=== PATIENT | male | born 1965 | race Caucasian/White ===

== ENCOUNTER → 2022-04-21 | Outpatient (CLI) | payer OTHER, SELFPAY ==
[2022-04-21 12:41] LABS: Absolute Lymphocyte Count 2.69 X10^3/uL (0.83-4.51); Absolute Neutrophil Count 7.1 X10^3/uL (2.0-7.7); Basophil# 0.05 X10^3/uL; Basophil% 0.5 % (0-1); Eosinophil# 0.14 X10^3/uL; Eosinophils% 1.3 % (0-5); Hematocrit 46.6 % (40-54); Hemoglobin 15.7 g/dL (13.0-16.5); Lymphocyte # 2.69 X10^3/ul (0.83-4.51); Lymphocyte % 25.2 % (19-41); Mean Corp Hgb Conc 33.7 g/dL (32-36); Mean Corpuscular Hgb 30.3 pg (27.0-32.0); Mean Corpuscular Volume 89.8 fL (80-94); Mean Platelet Vol. 9.2 fl (6.2-12.0); Monocyte% 6.6 % (0-10); NRBC Flagged by Analyzer 0 % (0-5); Neutrophil # 7.06 X10^3/uL (2.7-7.7); Neutrophil % 66.1 % (47-70); Platelet Count 267 K/mm3 (150-450); RBC Distribution Width CV 14.7 % (11.6-14.6); Red Blood Count 5.19 M/mm3 (4.6-6.2); White Blood Count 10.7 K/mm3 (4.4-11.0)
[2022-04-21 13:31] LABS: AST(SGOT) 15 U/L (15-37); Alanine Aminotransfer ALT/SGPT 34 U/L (16-61); Albumin, Serum 3.6 g/dL (3.2-5.0); Alkaline Phosphatase 87 U/L (45-117); Anion Gap 8 (5-15); BUN 14 mg/dL (7-18); BUN/Creat Ratio 19.7 RATIO (10-20); Calcium,Total 9.9 mg/dL (8.5-10.1); Chloride 100 mmol/L (98-107); Cholesterol 147 mg/dL (200); Creatinine, Serum 0.71 mg/dL (0.70-1.30); EST Glomerular Filtration Rate 123 mL/min (>60); Est Glom Filt Rate - Afr Amer 149 mL/min (>60); Globulin 3.6 g/dL (2.2-4.2); Glucose 134 mg/dL (74-106); High Density Lipoprotein 41 mg/dL; Potassium 4.6 mmol/L (3.5-5.1); Protein, Total 7.2 g/dL (6.4-8.2); Sodium Level 137 mmol/L (136-145); Triglycerides 109 mg/dL; Very Low Density Lipoprotein 22 mg/dL (5-40)
== END | disposition home or self-care (01) ==
LOC: LABSPEC 10:39
PROVIDERS: PCP Internal Medicine; Visit Provider Nurse Practitioner Family
DX: I10 Essential (primary) hypertension (principal); E11.9 Type 2 diabetes mellitus without complications; E78.5 Hyperlipidemia, unspecified
CPT/HCPCS: 80053; 80061; 83036; 85025

== ENCOUNTER 2025-04-27 13:49 | Outpatient (RCR) | payer SELFPAY ==
[2025-04-27 14:23] VITALS: BP 126/74; PULSE 85; RESP 16; TEMP 36.8; BMI 24.3
--- NOTE | 2025-04-27 16:08 | PCM.WC.HP ---
History of Present Illness Date of Service: 04/27/25 History of Wound: Mr. Ivan Gaspar is a 59 y/o male who presents today with concerns regarding pain and skin changes to the RLE. He reports a couple weeks ago he was power-washing his house and was set off balance, tripped backwards but ultimately landed on his feet; he did scrape the inside of his R calf/horn against scaffolding but this was superficial, he denies any penetrating injury. Initially, it all seemed quite minor but that evening his R ankle swelled up, the calf/horn was red and tender, and he developed significant pain to the calf/horn and top of his foot. He presented to the ER and was treated for cellulitis with a course of Bactrim and Keflex and provided with hydrocodone-acetaminophen for pain. He reports he saw no improvement in the discoloration with this initial course of antibiotics. The pain medication did help take the edge off the pain so that he could sleep. He then saw his primary care who is an integrative medicine provider; they prescribed ceftriaxone IM, Bactrim was continued, Keflex was stopped and replaced with Penicillin. The red areas of concern still remain though look slightly better in their estimation. The swelling around the ankle has resolved. He still gets significant intermittent pains which he describes as feeling like an explosion around mid calf and the top of his foot and then the pain radiates from there like sonar. These pains occur sometimes with activity and sometimes at rest, no clear triggers. Nothing seems to alleviate it. He does have a history of significant degenerative disc disease by report; has a spinal cord stimulator in place though notes the battery recently went out and he is due to have this replaced. It was placed by Dr. Siu, he has not seen him in several years. He denies any history of osteoporosis. He has been able to bear weight on his leg. Notably, he is diabetic with history of poor control, last A1C 8 and from review of ER notes glucose was 400s then. He does not take any medications for his diabetes, does not believe in them and feels worse when taking them. PFSH Home Medications ?Medication ?Instructions ?Recorded ?Last Taken ?Type apixaban 5 mg tablet (Eliquis) 5 mg PO BID 04/27/25 Unknown History ascorbic acid (vitamin C) 500 mg 1 g PO DAILY 04/27/25 Unknown History chewable tablet (Acerola C) aspirin 81 mg capsule 81 mg PO DAILY 04/27/25 Unknown History cinnamon bark 500 mg capsule 500 mg PO BID 04/27/25 Unknown History (Cinnamon) clotrimazole 1 % topical cream 1 applic topical BID 2 weeks #90 04/27/25 Unknown Rx grams epinephrine 0.3 mg/0.3 mL IM PRN PRN anaphylaxis 04/27/25 Unknown History injection, auto-injector fluconazole 150 mg tablet 150 mg PO QWEEK 2 weeks #2 tabs 04/27/25 Unknown Rx hydrocodone 2.5 mg-acetaminophen 1 tab PO Q8H PRN pain 4 days #12 04/27/25 Unknown Rx 325 mg tablet tabs hydrocodone-acetaminophen 5-325mg 1 tab PO Q6H PRN PRN pain 04/27/25 Unknown History 5mg-325mg magnesium carb,citrate,oxide mg PO DAILY 04/27/25 Unknown History (Magnesium Complex) penicillin V potassium 500 mg 500 mg PO TID 04/27/25 Unknown History tablet sulfamethoxazole 800 1 tab PO BID 04/27/25 Unknown History mg-trimethoprim 160 mg tablet zinc 50 mg capsule 50 mg PO DAILY 04/27/25 Unknown History Social History Smoking Status: Former smoker Vital Signs Vital Signs Vital Signs: 04/27/25 14:23 Temperature 98.3 F Temperature Source Temporal Pulse Rate 85 Respiratory Rate 16 Blood Pressure 126/74 H Blood Pressure Mean 91 Blood Pressure Source Monitor Blood Pressure Position Sitting Blood Pressure Location Right Arm Oxygen Delivery Method Room Air Weight Weight: 174 lb Body Mass Index (BMI) 24.3 Physical Exam Const alert, oriented x3 and no apparent distress General Appearance: cooperative and comfortable HEENT normocephalic, head/scalp atraumatic, hearing grossly normal bilaterally, external ears normal and external nose normal Eyes EOMs intact bilaterally General Eye: normal appearance of both eyes Neck General: normal visual inspection Resp normal respiratory effort, normal air movement and no retractions Effort and Inspection: able to speak in complete sentences; Negative for labored, grunting or stridor Cardio regular rate and regular rhythm Extremity Extremity Narrative: No tenderness to palpation around the bony structures of the ankle, foot, or horn. There is no deformity to palpation. There are no focal areas of swelling, induration/fluctuance, excess warmth. Skin Wound Narrative: Bilateral with thickened, enlarged toe nails consistent with fungal infection. Bilateral soles of his feet extending up the sides toward the dorsum there are erythematous patches with scaling about the edges; on the RLE this extends up the calf/horn on the medial and lateral aspects. There is associated excoriation. There are no open wounds. Neuro oriented x3, CN's II-XII intact bilaterally, moves all extremities and no focal motor deficits Psych mental status grossly normal Appearance: grossly normal Attitude: calm and engaged Activity / Motor Behavior: appropriate eye contact Speech: normal speech Debridement Note Debridement Note No debridement was completed: No debridement was completed today Post-Debridement Measurements and Additional Note: Post-Debridement Measurements/Treatment - Nurse 1 - General Ulcer Assessment Start: 04/27/25 14:16 Freq: Status: Active Protocol: MYCHAL Activity Type Activity Date Activity User E-sign Co-sign Detail Recorded Client Recorded Date Recorded By Document 04/27/25 14:23 [facility] [id number] 04/27/25 14:38 [facility] 04/27/25 14:23 - Today's Visit Information Type of service Initial Visit Arrival Mode Ambulatory Transfer Assistance None Accompanied by Patient Identification Verified (Name & Yes ) Patient Requires Transmission-Based No Precautions Height and Weight Height 5 ft 11 in Weight 174 lb Weight in Pounds 174.0 lbs Weight Measurement Method Stated by Patient Body Mass Index (BMI) 24.3 BMI Classification Normal Vital Signs Temperature (97.8 F-99.1 F) 98.3 F Temperature Source Temporal Pulse Rate (60-100) 85 Pulse Location Monitor Respiratory Rate (12-18) 16 Respiratory rate source Observation Oxygen Delivery Method Room Air Blood Pressure (90/60-120/80) 126/74 H Blood Pressure Mean 91 Source Monitor Position Sitting Blood Pressure Location Right Arm History Since Last Visit- (Skip if this is Patient's initial visit) Left Footwear Regular Shoe Right Footwear Regular Shoe Pain Scale: 0-10 Numeric Is Patient Pain Free? Yes Lower Extremity Assessment/ Foot Assessment/ Toe Nail Assessment Right -Posterior Tibial Doppler Monophasic -Dorsalis Pedis Doppler Monophasic -Hair Growth on Legs No -Hair Growth on Toes No -Temperature of Extremity Warm -Capillary Refill Less than 3 Seconds -Thick Yes -Discolored Yes Left -Posterior Tibial Doppler Monophasic -Dorsalis Pedis Doppler Monophasic -Hair Growth on Legs No -Hair Growth on Toes No -Temperature of Extremity Warm -Capillary Refill Less than 3 Seconds -Thick Yes -Discolored Yes Neuropathy Assessment Feet - Top Side and Bottom <Entered> (a) Teaching Assessment Preferences Verbal,Written, Audio/Visual, Demonstration Barriers to Learning None Readiness To Learn Excellent Willingness to Engage in Self Management High Activies Readiness to Engage in Self Management High Activities Anxiety Level Calm Cooperation Cooperative Perception Coherent Interest in Health Problem Asks Questions Education Importance Acknowledges Need Smoking Status Former smoker Is Patient Diabetic Yes Functional Assessment Recent Decline in Ability to Perform Denies Any Declines 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 Cultural/Faith Needs that may affect Yes Treatment Plan (a) 1 - + - Nurse 1 - General Ulcer Measurement Start: 04/27/25 14:16 Freq: Status: Active Protocol: Activity Type Activity Date Activity User E-sign Co-sign Detail Recorded Client Recorded Date Recorded By Document 04/27/25 14:23 [facility] [id number] 04/27/25 14:38 [facility] 04/27/25 14:23 [facility] Nurse 1 Right Calf (cm) 32.4 Right Ankle (cm) 20.6 Left Calf (cm) 34.6 Left Ankle (cm) 20.5 - Nurse 2 - General Ulcer CM Notes Start: 04/27/25 14:16 Freq: Status: Active Protocol: Activity Type Activity Date Activity User E-sign Co-sign Detail Recorded Client Recorded Date Recorded By Document 04/27/25 14:57 [id number] 04/27/25 15:03 04/27/25 14:57 Pain Scale: 0-10 Numeric Is Patient Pain Free? Yes - Nurse 3 - General Ulcer D/C NN Start: 04/27/25 14:16 Freq: Status: Active Protocol: Activity Type Activity Date Activity User E-sign Co-sign Detail Recorded Client Recorded Date Recorded By Document 04/27/25 15:07 [id number] 04/27/25 15:07 04/27/25 15:07 Is Patient Pain Free? Yes - Visit Discharge Discharge Condition Stable Ambulatory Status Ambulatory Transportation Private Auto Charges/Coding Visit Charges Office Visits / Consults: 18024 OV L3 New 30min Assessment/Plan Assessment/Plan (1) Tinea pedis of both feet: CODE(S): B35.3 - Tinea pedis (2) Tinea corporis: CODE(S): B35.4 - Tinea corporis (3) Acute pain of right lower extremity: CODE(S): M79.604 - Pain in right leg PLAN: Plan I do not believe he has a bacterial cellulitic component at this time. There are also no open wounds. By exam, findings are consistent with tinea pedis bilaterally and tinea corporis to the R lower leg. I will prescribed a short course of fluconazole initially and will prescribed topical clotrimazole to be used thereafter for management. We discussed that is poor glycemic control likely makes him more prone to more extensive tinea infection; improving blood sugar control would be beneficial in treatment and in prevention. I do not think this accounts for his RLE pain. I think he is unlikely to have any fractures by his mechanism of injury, the fact he is able to bear weight and no point tenderness to palpation of bony prominences on exam, though discussed that XR would be necessary to rule this out which he defers at this time. It is possible he has soft tissue injury to muscle or tendons/ligaments contributing. I think it is also possible that his pain is neurogenic in nature due to his DDD which may have been inflamed/irritated by the fall. I advise he follow-up with Dr. Siu regarding his spinal cord stimulator and to consider further evaluation in this regard. For now, I will refill a short course of the hydrocodone-acetaminophen for use PRN. He will return in 2 weeks if his symptoms have not improved with above anti-fungal treatments, sooner as needed. Call sooner with concerns.
== END 2025-05-01 23:59 | disposition home or self-care (01) ==
LOC: WC 13:49
PROVIDERS: PCP Nurse Practitioner Family; Referring Provider Nurse Practitioner Family; Visit Provider Physician Assistant
DX: B35.3 Tinea pedis (principal); E11.9 Type 2 diabetes mellitus without complications; B35.4 Tinea corporis; M79.604 Pain in right leg; Z79.01 Long term (current) use of anticoagulants; Z79.82 Long term (current) use of aspirin; Z79.891 Long term (current) use of opiate analgesic; Z87.891 Personal history of nicotine dependence
CPT/HCPCS: 99203; G0463

== ENCOUNTER 2025-07-21 09:48 | Day surgery (SDC) | payer SELFPAY ==
[2025-07-21] VITALS (8 sets, daily range): BP systolic 123–145; BP diastolic 68–85; PULSE 69–80; RESP 18; TEMP 36.1–36.3; O2SAT 88–98; BMI 23.8
--- NOTE | 2025-07-21 10:26 | PRE.ANES_ITS ---
ASA Classification* ASA Classification ASA Classification: 2 Assessment & Plan Anesthesia* Anesthesia Assessment Anesthesia Assessment: Discussed sedation and/or anesthesia options, risks, benefits, and alternatives with patient/parents/legal guardian/POA. Questions invited. The patient/parents/legal guardian/POA seems to understand and agrees to proceed with anesthesia plan. Reviewed the physical assessment, medical history, allergy history and patient home medications list prior to surgery/procedure/anesthetic and documented any changes. Performed airway and anesthesia risk assessments. Anesthesia Type Anesthesia Type: General Anesthesia Focused Assessment* Temperature: 97.4 F Pulse Rate: 80 Blood Pressure: 145/85 Respiratory Rate: 18 Pulse Ox: 98 Airway Assessment Mouth opens: >3 cm Mallampati Score: II Labs Anesthesia Preop lab: CBC WBC, (4.4-11.0) 10.7 K/mm3 04/21/22, 08:15 RBC, (4.6-6.2) 5.19 M/mm3 04/21/22, 08:15 Hgb, (13.0-16.5) 15.7 g/dL 04/21/22, 08:15 Hct, (40-54) 46.6 % 04/21/22, 08:15 Plt Count, (150-450) 267 K/mm3 04/21/22, 08:15 CHEMISTRY Potassium, (3.5-5.1) 4.6 mmol/L 04/21/22, 08:15 Sodium, (136-145) 137 mmol/L 04/21/22, 08:15 BUN, (7-18) 14 mg/dL 04/21/22, 08:15 Creatinine, (0.70-1.30) 0.71 mg/dL 04/21/22, 08:15 Glucose, (74-106) 134 mg/dL H 04/21/22, 08:15 COAG Pre-Assessment Diagnosis/Proposed Procedure Planned Operative Procedure(s): (N/A) Insertion, Spinal Cord Stim,Permanent Anesthesia History 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 When Was Last Pacemaker Check QUESTION #4 FULL TEXT: You/Your Family Experience fever (hyperthermia) with Anesthesia Last Oral Intake Last Oral intake: Last Oral Intake NPO since 08:00 07/21/25 10:15 Meds taken in AM with sips of No 07/21/25 10:15 water? Meds patient instructed to take am of surgery PONV PONV - furniture finisher helper: PONV - furniture finisher helper Female No 07/17/25 14:27 HX of Motion Sickness No 07/17/25 14:27 HX of N/V After Surgery No 07/17/25 14:27 Non-Smoker Yes 07/17/25 14:27 Duration of Surgery greater Yes 07/17/25 14:27 than 60 minutes Number of Risk Factors 2 07/17/25 14:27 PONV Score Moderate Risk 07/17/25 14:27 Height & Weight Height & Weight: Anesthesia: Height & Weight Height 6 ft 07/21/25 10:15 Weight: 79.8 kg 07/21/25 10:15 Body Mass Index (BMI) 23.8 07/21/25 10:15 Respiratory Assessment Respiratory Assessment - furniture finisher helper: Respiratory Tract Infection Hx - furniture finisher helper Hx Respiratory Tract Infection No 07/17/25 14:27 STOP Sleep Apnea STOP Sleep Apnea - furniture finisher helper: STOP Sleep Apnea - furniture finisher helper Hx Hypertension Yes: YRS AGO, NO MEDS NOW 07/17/25 14:27 Hx Sleep Apnea Yes: 2004 WITH LYMES DZ 07/17/25 14:27 CPAP Yes: NO LONGER NEEDED 07/17/25 14:27 BIPAP No 07/17/25 14:27 Do you snore loudly (louder than talking or can be heard Do you often feel tired/ fatigued/ sleepy during daytime? Has anyone observed you stop breathing during sleep? STOP Results Positive 07/17/25 14:27 QUESTION #5 FULL TEXT : Do you snore loudly (louder than talking or can be heard through closed doors)? 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 Specify any problems Hx of Preganancy in last 3 N/A 07/17/25 14:27 Months Nurse Filling Out Transfusion [email or web address] 07/17/25 14:27 & Questions: Date: 07/17/25 07/17/25 14:27 Time: 14:30 07/17/25 14:27 Patient unable to answer at this time (ie. confused, unrespo /Reproduction History /Reproductive History - furniture finisher helper: /Reproductive Hx- furniture finisher helper Hx Now No 07/17/25 14:27 Gestational Age (in weeks): EDC: Hx Hx Para Hx Section SAB No 07/17/25 14:27 Active Medications Active Medications: Current Medications Generic Name Dose Route Start Last Admin Trade Name Freq PRN Reason Stop Dose Admin Cefazolin Sodium 2 gm/ Sodium 110 mls @ 200 mls/hr 07/21/25 13:45 Chloride IV 07/21/25 14:17 INTRAOP ONE Lactated Ringer's 1,000 mls @ 15 mls/hr 07/21/25 10:00 IV .Q48H [email or web address] PFSH Medical History Wears glasses History of sleep apnea History of pulmonary embolism Hx of blood diseases Easy bruising History of Lyme disease Injury of back Gastric reflux Former smoker History of stress test History of hypertension Home Medications ?Medication ?Instructions ?Recorded ?Last Taken ?Type apixaban 5 mg tablet (Eliquis) 5 mg PO BID 04/27/25 History Held on 07/17/25. Instructions: LAST DOSE 07/15/25 FOR SURGERY 07/21/25 ascorbic acid (vitamin C) 500 mg 1 g PO DAILY 04/27/25 07/15/25 History chewable tablet (Acerola C) aspirin 81 mg capsule 81 mg PO DAILY 04/27/2507/03 History Held on 07/17/25. Instructions: LAST DOSE 07/15/25 FOR SURGERY 07/21/25 epinephrine 0.3 mg/0.3 mL 0.3 ml IM PRN PRN anaphylaxi s 04/27/25 Unknown History injection, auto-injector magnesium carb,citrate,oxide 1,000 mg PO DAILY 5 07/15/25 History (Magnesium Complex) zinc 50 mg capsule 50 mg PO DAILY 04/27/2507/03 History omeprazole 20 mg capsule,delayed 40 mg PO DAILY PRN ac id reflux 07/17/25 07/21/25 History release Allergy/AdvReac Type Severity Reaction Status Date / Time rosuvastatin (From Crestor) Allergy Severe Swelling Verified 07/21/25 10:13 Surgical History History of surgery History of insertion of nerve stimulator Social History Smoking Status: Former smoker Review of Systems (Anesthesia) ROS Narrative System reviewed and no additional complaints, except as documented.
[2025-07-21] MEDS: Lactated Ringers 1,000 ML 15 ML IV (10:29)
[2025-07-21] MEDS: Cefazolin 1 GM/5 ML Vial 2 GM IV (13:08)
[2025-07-21] MEDS: Midazolam 2 MG/2 ML Syringe IV (13:21)
[2025-07-21] MEDS: fentaNYL 100 MCG/2 ML Ampul IV (14:08)
--- NOTE | 2025-07-21 14:11 | RAD_ITS ---
PROCEDURE: LUMBAR SPINE 2 OR 3 VIEWS 07/21/2025 REASON FOR EXAM: GENERAL TECHNIQUE: Procedure Code: RADSPLL Modality: DX Procedure: LUMBAR SPINE 2 OR 3 VIEWS. AP and lateral coned-down small [id number] images at the lower thoracic spine. COMPARISON: None FINDINGS: Radiopaque markers are associated with leads which overlie the spinal canal. The leads extend cephalad to the level of the T8 vertebral body. Clinical correlation is advised. Degenerative change of the visualized lower thoracic spine noted. Consider large [id number] complete radiographic imaging as clinically appropriate. RAD/Lumbar Spine 2 or 3 Views IMPRESSION: Limited fluoroscopic spot film evaluation with lead position discussed above. Reading Location: [id number]
[2025-07-21] MEDS: PROPOFOL 10.93 MG IV (14:48)
[2025-07-21] MEDS: Lidocaine 0.5% (50 ml) 50 ML Vial (15:02)
[2025-07-21] MEDS: Bupiv/Epi 0.25% 30 ML Vial (15:03)
--- NOTE | 2025-07-21 16:07 | PCM.POST.ANE ---
Anesthesia: Postop Eval I Current Vital Signs Temperature: 96.9 F Pulse Rate: 70 Blood Pressure: 129/76 Respiratory Rate: 18 Pulse Ox: 93 Oxygen Delivery Method: Room Air Assessment Airway patent: Yes Spontaneous unlabored respirations: Yes Mental status: Awake nausea: No Vomiting: No Anesthesia Complication: No Fluid Hydration Crystalloid volume administer (ml): 1,500 Total IV fluid infused: 1,500 Progress Note Anesthesia document: Postop Eval 1 completed: Yes
--- NOTE | 2025-07-21 17:09 | POSTOPAN2_ITS ---
Anesthesia Postop Eval I Sum Postop Eval Completion status Anesthesia document: Postop Eval 1 completed: Yes Anesthesia Postop Eval I Summary Anesthesia Postop Eval I Summary: Anesthesia Postop Eval I: Assessment Summary Airway patent Yes 07/21/25 16:08 [email or web address] Spontaneous unlabored Yes 07/21/25 16:08 [email or web address] respirations Mental status Awake 07/21/25 16:08 [email or web address] nausea No 07/21/25 16:08 [email or web address] Vomiting No 07/21/25 16:08 [email or web address] Anesthesia Postop Eval I: Fluid Summary Crystalloid volume administer 1,500 07/21/25 16:08 [email or web address] (ml) Colloids volume administered ( ml) Blood Product volume administered (ml) Total IV fluid infused 1,500 07/21/25 16:08 [email or web address] Anesthesia Postop Eval I: Summary Notes Anesthesia Complication No 07/21/25 16:08 [email or web address] Anesthesia Complication Comment: Post-operative progress note Anesthesia: Postop Eval II Evaluation Mental status: Awake and Calm Pain Level: 3 nausea: No Vomiting: No
--- NOTE | 2025-07-21 17:09 | PCM.POSTANE2 ---
Anesthesia Postop Eval I Sum Postop Eval Completion status Anesthesia document: Postop Eval 1 completed: Yes Anesthesia Postop Eval I Summary Anesthesia Postop Eval I Summary: Anesthesia Postop Eval I: Assessment Summary Airway patent Yes 07/21/25 16:08 [email or web address] Spontaneous unlabored Yes 07/21/25 16:08 CHIMNEY [email or web address] respirations Mental status Awake 07/21/25 16:08 [email or web address] nausea No 07/21/25 16:08 CHIMNEY [email or web address] Vomiting No 07/21/25 16:08 [email or web address] Anesthesia Postop Eval I: Fluid Summary Crystalloid volume administer 1,500 07/21/25 16:08 [email or web address] (ml) Colloids volume administered ( ml) Blood Product volume administered (ml) Total IV fluid infused 1,500 07/21/25 16:08 [email or web address] Anesthesia Postop Eval I: Summary Notes Anesthesia Complication No 07/21/25 16:08 [email or web address] Anesthesia Complication Comment: Post-operative progress note Anesthesia: Postop Eval II Evaluation Mental status: Awake and Calm Pain Level: 3 nausea: No Vomiting: No
== END 2025-07-21 16:47 | disposition home or self-care (01) ==
LOC: SDC 09:49 → AC 09:51
PROVIDERS: PCP Nurse Practitioner Family; Referring Provider Anesthesiology Pain Medicine; Visit Provider Anesthesiology Pain Medicine
PROC: (CPT 63685; principal; 2025-07-21 11:25)
DX: G89.4 Chronic pain syndrome (principal); D68.2 Hereditary deficiency of other clotting factors; E11.9 Type 2 diabetes mellitus without complications; M54.9 Dorsalgia, unspecified; M79.606 Pain in leg, unspecified; I10 Essential (primary) hypertension; Z45.42 Encounter for adjustment and management of neurostimulator; K21.9 Gastro-esophageal reflux disease without esophagitis; Z87.891 Personal history of nicotine dependence
CPT/HCPCS: 63685; 63650; 00300; 72100; 76000; C1778; J2405